=== PATIENT | male | born 1995 | race Asian ===

== ENCOUNTER 2022-05-10 16:17 | Emergency (ER) | payer OTHER ==
[2022-05-10 16:29] VITALS: BP 124/77
--- NOTE | 2022-05-10 16:38 | ED Physician Documentation ---
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 He yesterday he was helping lift and carry something heavy and was walking backwards. He fell, falling backwards. He did not hit his neck or head and felt fine at the time but overnight his neck is stiff and up and he has an occipital headache. Review of Systems Constitutional: reports: Reviewed and negative Eyes: reports: Reviewed and negative Ears: reports: Reviewed and negative Nose: reports: Reviewed and negative Throat: reports: Reviewed and negative PD PAST MEDICAL HISTORY - Past Medical History Past Medical History: No - Past Surgical History Past Surgical History: No - Present Medications Home Medications: Ambulatory Orders Medication Instructions Recorded Confirmed Cyclobenzaprine [Flexeril] 10 mg PO TID PRN #10 tablet 05/10/22 Ibuprofen [Motrin] 1 tablet PO Q8H PRN #30 tablet 05/10/22 - Allergies Allergies/Adverse Reactions: Allergies Allergy/AdvReac Type Severity Reaction Status Date / Time No Known Drug Allergies Allergy Verified 05/10/22 16:29 - Social History Does the pt smoke?: No Smoking Status: Never smoker Does the pt drink ETOH?: Yes Does the pt have substance abuse?: No - Immunizations Immunizations are current?: Yes - POLST Patient has POLST: No PD ED PE NORMAL - Vitals Vital signs reviewed: Yes - General General: Alert and oriented X 3, No acute distress - HEENT HEENT: PERRL, EOMI - Neck Neck: No bony TTP (Tenderness over the right sternocleidomastoid without midline spinal tenderness. 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 The nexus criteria were applied. The patient has no focal neurologic deficit on examination. The patient has no midline spinal tenderness. The patient has a normal level of consciousness. The patient has no evidence of intoxication. There is no distracting injury presents. Given that these were all negative, per the Nexus criteria the cervical spine was cleared without imaging. Departure - Departure Disposition: Home, Self Care Clinical Impression: Neck strain Condition: Good Record reviewed to determine appropriate education?: Yes Instructions: ED Sprain Strain Neck Prescriptions: Cyclobenzaprine [Flexeril] 10 mg PO TID PRN #10 tablet PRN Reason: Spasms Ibuprofen [Motrin] 1 tablet PO Q8H PRN #30 tablet PRN Reason: PAIN &/OR FEVER Comments: Return if you worsen or if new symptoms develop. Do not drink or drive while taking Flexeril/cyclobenzaprine the muscle relaxer. [place]. Forms: Activity restrictions
== END 2022-05-10 16:43 | disposition home or self-care (01) ==
LOC: ED 16:17
DX: S16.1XXA Strain of muscle, fascia and tendon at neck level, initial encounter (principal); W18.30XA Fall on same level, unspecified, initial encounter; Y93.89 Activity, other specified
CPT/HCPCS: 99282